=== PATIENT | male | born 1975 | race Caucasian/White ===

== ENCOUNTER 2016-12-20 19:38 | Emergency (ER) | payer OTHER, MEDICAID ==
[2016-12-20 20:35] VITALS: BP 107/76
== END 2016-12-20 22:50 | disposition left against medical advice (07) ==
LOC: ER 19:38
DX: Z53.21 Procedure and treatment not carried out due to patient leaving prior to being seen by health care provider (principal)

== ENCOUNTER 2017-03-25 15:47 | Emergency (ER) | payer OTHER, MEDICAID ==
[2017-03-25 15:52] VITALS: BP 114/90
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
== END 2017-03-25 16:15 | disposition home or self-care (01) ==
LOC: ER 15:47
DX: Z76.0 Encounter for issue of repeat prescription (principal); R19.7 Diarrhea, unspecified
CPT/HCPCS: 99281